=== PATIENT | male | born 1975 | race Caucasian/White ===

== ENCOUNTER 2023-08-20 20:10 | Inpatient (IN) | payer MEDICARE, SELFPAY ==
[2023-08-20] VITALS (8 sets, daily range): BP systolic 131–156; BP diastolic 64–92; BMI 21.4; BMI 21.1
--- NOTE | 2023-08-20 16:26 | ED.GENMED ---
History of Present Illness
<Rochelle Turner PA-C - Last Filed: 08/20/23 19:14>
General
Chief Complaint: Seizure
Source: patient
Exam Limitations: none
Time Seen by Provider: 08/20/23 16:17
Nursing documentation reviewed up to this point in time: agreed with
Travel History
Have you had any contact with someone who has COVID-19?: No
Do you have any symptoms of coronavirus? Fever > 100 degrees, chills, cough, shortness of breath, sore throat, loss of taste or smell, muscle aches, or headache?: No
History of Present Illness
History of Present Illness:
This is a 48-year-old male with a past medical history of alcohol abuse, anxiety, seizure disorder presenting emergency department today for a witnessed seizure while working. Patient is present in room with his girlfriend. Girlfriend reports that
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 Girlfriend reports that he had 2 seizures that each lasted 1 minute in length. Patient reports that he remembers going to work today and being at work but he is not
recall what happened before the seizure and does not recall any other details. Patient does not think he bit his tongue or had any urinary incontinence. Patient denies any headache but does note some feelings of being out of it and some mild
confusion. Patient does have a history of alcohol abuse, patient states that he started to drink a sixpack a day but currently, he only have a drink from time to time. Patient states his last drink was 1 week ago. Patient denies any history of
smoking or illicit substances.
Past History
<Rochelle Turner PA-C - Last Filed: 08/20/23 19:14>
Past History
ED Past Medical History: Seizures
ED Past Surgical History: None
Social History
Tobacco: Smoker
Alcohol: None
Personal: Other (Seperated)
Living: alone
Employment: Employed
Review of Systems
<Rochelle Turner PA-C - Last Filed: 08/20/23 19:14>
Review of Systems
All Other Systems: ROS reviewed and negative except as documented in HPI and ROS
Phy Exam
<Rochelle Turner PA-C - Last Filed: 08/20/23 19:14>
Physical Exam
Physical Exam:
General: Patient is well appearing and in no acute distress; non-toxic
Skin: Warm and dry, no rashes or lesions
Head: Normocephalic, atraumatic
Eyes: Sclera non-icteric. EOMs intact. PERRLA. No nystagmus.
Cardiac: Patient is tachycardic otherwise no murmurs, rubs, or gallops
Peripheral Vascular: No lower extremity edema
Pulm: Normal respiratory effort, no wheezes, rales, or rhonchi
Abdomen: No abdominal tenderness
Musculoskeletal: 5/5 strength in b/l upper and lower extremities.
Neuro: CN II-XII intact, no focal neurologic deficits. Resting tremor bilaterally with both arms extended. Finger to nose, heel to hernandez testing intact.
Psychiatric: Appropriate mood and affect.
Course
<Rochelle Turner PA-C - Last Filed: 08/20/23 19:14>
Orders/Labs/Results
Orders:
Orders
08/20/23 16:14
EKG [Electrocardiogram (*1)] Stat
Reason for Study: Tachycardia
EKG- Treatment ONCE
08/20/23 16:20
Alcohol Urgent
Complete Blood Count/With Diff Urgent
Comprehensive Metabolic Panel Urgent
08/20/23 16:51
Levetiracetam Injectable [Keppra] 1,000 mg IV NOW STA
08/20/23 16:52
CT Head W/o Iv Contrast Urgent
Comment:
Reason For Exam: seizure
08/20/23 17:16
Urinalysis Reflex To Culture Urgent
0.9% Sodium Chloride 1000 ml [Nss] 1,000 ml IV BOLUS
08/20/23 17:29
Blood Culture Q30M
TAYE Source: Blood/Venous
Specimen Description:
Blood Culture Q30M
TAYE Source: Blood/Venous
Specimen Description:
08/20/23 17:45
Add On- LAB Urgent
Tests Added?: ethanol
08/20/23 19:12
Nicotine [Nicoderm Transdermal] 21 mg TRANSDERM STAT STA
Abnormal Lab Results
08/20/23
16:20
WBC 37.8 H 10^3/uL
(4.8-10.8)
RBC 4.17 L 10^6/uL
(4.70-6.10)
MCV 101.0 H fL
(80.0-94.0)
MCH 33.1 H pg
(27.0-31.0)
MCHC 32.8 L g/dL
(33.0-37.0)
RDW 14.6 H %
(11.5-14.5)
Abs Immat Gran (auto) 2.4 H 10^3/uL
(0-0.05)
Absolute Neuts (auto) 28.1 H 10^3/uL
(1.4-6.5)
Absolute Lymphs (auto) 3.6 H 10^3/uL
(1.2-3.4)
Absolute Monos (auto) 2.4 H 10^3/uL
(0.1-0.6)
Absolute Basos (auto) 1.2 H 10^3/uL
(0-0.2)
Immature Gran % 6.3 H %
(0-0.5)
Lymphocytes % 9.6 L %
(20.5-51.1)
Basophils % 3.0 H %
(0-2)
Carbon Dioxide 11 L* mmol/L
(22-30)
Glucose 168 H mg/dl
(70-99)
Albumin 5.4 H g/dl
(3.5-5.0)
08/20/23 16:20
08/20/23 16:20
Vital Signs
Initial and Last Documented VS:
Initial Vital Signs
Temp Pulse Resp BP Pulse Ox
98.5 F 149 30 131/64 100
08/20/23 16:10 08/20/23 16:10 08/20/23 16:10 08/20/23 16:10 08/20/23 16:10
Last Documented Vital Signs
Temp Pulse Resp BP Pulse Ox
98.5 F 130 16 148/82 98
08/20/23 16:10 08/20/23 18:30 08/20/23 18:30 08/20/23 18:24 08/20/23 18:30
<Santiago Garcia MD - Last Filed: 08/20/23 17:46>
Orders/Labs/Results
Orders:
Orders
08/20/23 16:14
EKG [Electrocardiogram (*1)] Stat
Reason for Study: Tachycardia
EKG- Treatment ONCE
08/20/23 16:20
Alcohol Urgent
Complete Blood Count/With Diff Urgent
Comprehensive Metabolic Panel Urgent
08/20/23 16:51
Levetiracetam Injectable [Keppra] 1,000 mg IV NOW STA
08/20/23 16:52
CT Head W/o Iv Contrast Urgent
Comment:
Reason For Exam: seizure
08/20/23 17:16
Urinalysis Reflex To Culture Urgent
0.9% Sodium Chloride 1000 ml [Nss] 1,000 ml IV BOLUS
08/20/23 17:29
Blood Culture Q30M
TAYE Source: Blood/Venous
Specimen Description:
Blood Culture Q30M
TAYE Source: Blood/Venous
Specimen Description:
08/20/23 17:45
Add On- LAB Urgent
Tests Added?: ethanol
08/20/23 19:12
Nicotine [Nicoderm Transdermal] 21 mg TRANSDERM STAT STA
Abnormal Lab Results
08/20/23
16:20
WBC 37.8 H 10^3/uL
(4.8-10.8)
RBC 4.17 L 10^6/uL
(4.70-6.10)
MCV 101.0 H fL
(80.0-94.0)
MCH 33.1 H pg
(27.0-31.0)
MCHC 32.8 L g/dL
(33.0-37.0)
RDW 14.6 H %
(11.5-14.5)
Abs Immat Gran (auto) 2.4 H 10^3/uL
(0-0.05)
Absolute Neuts (auto) 28.1 H 10^3/uL
(1.4-6.5)
Absolute Lymphs (auto) 3.6 H 10^3/uL
(1.2-3.4)
Absolute Monos (auto) 2.4 H 10^3/uL
(0.1-0.6)
Absolute Basos (auto) 1.2 H 10^3/uL
(0-0.2)
Immature Gran % 6.3 H %
(0-0.5)
Lymphocytes % 9.6 L %
(20.5-51.1)
Basophils % 3.0 H %
(0-2)
Carbon Dioxide 11 L* mmol/L
(22-30)
Glucose 168 H mg/dl
(70-99)
Albumin 5.4 H g/dl
(3.5-5.0)
08/20/23 16:20
08/20/23 16:20
Vital Signs
Initial and Last Documented VS:
Initial Vital Signs
Temp Pulse Resp BP Pulse Ox
98.5 F 149 30 131/64 100
08/20/23 16:10 08/20/23 16:10 08/20/23 16:10 08/20/23 16:10 08/20/23 16:10
Last Documented Vital Signs
Temp Pulse Resp BP Pulse Ox
98.5 F 130 16 148/82 98
08/20/23 16:10 08/20/23 18:30 08/20/23 18:30 08/20/23 18:24 08/20/23 18:30
<Rochelle Turner PA-C - Last Filed: 08/20/23 19:14>
MDM/Problems Addressed
Differential Diagnosis Includes:
ddx include epileptic seizure, syncope, alcohol withdrawal seizure, hypnonatremia, meningitis
MDM/Problems Addressed:
Seizure
Chronic conditions affecting care:
Seizure disorder, alcohol abuse
Acute Exacerbation and/or Progression of Chronic Illness:
Seizure disorder, alcohol abuse
<Rochelle Turner PA-C - Last Filed: 08/20/23 19:14>
*Pulse Oximetry
Patient hypoxic: no
*Critical Care Note
Total Time (30-74mins, 75-104mins- exclusive of procedures): Not Applicable
<Rochelle Turner PA-C - Last Filed: 08/20/23 19:14>
Patient Management
Escalation/DeEscalation of care consider admission/obs:
This is a 48-year-old male with a past medical history of alcohol abuse, anxiety, seizure disorder presenting emergency department today for a witnessed seizure while working. Patient does have a known history of a seizure disorder and he is taking
Keppra but no longer takes this, does not follow with neurologist, has not had a seizure within a few years. On exam, he is nontoxic-appearing and has a nonfocal neurologic exam. His lab work reveals a significant leukocytosis of 37, as well as a
acidosis with a bicarb of 11. No signs or symptoms of infection at this time, will obtain blood cultures. Considering patient's abnormal labs and persistent tachycardia, will admit him for observation further workup
ED Attending Note
<Rochelle Turner PA-C - Last Filed: 08/20/23 19:14>
-
Portions of this chart may have been created with voice recognition software.� Occasional wrong word or��sound alike� substitutions may have occurred due to the inherent limitations of voice recognition software.
<Santiago Garcia MD - Last Filed: 08/20/23 17:46>
ED Attending Note
Patient seen and examined by attending physician: Yes
I performed the substantive portion of visit, reviewed & personally made and approve the management plan that is documented in note by myself or YULY.: Yes
ED Attending Note:
Patient apparently had 2 grand mal seizures at work these lasting about a minute. Postictal now but slowly waking up. Per his girlfriend he was fine this morning. Does have an alcohol history but stopped about a month ago with only occasional
drinking. Had a drink about 1 week ago. No withdrawal-like symptoms this morning going to work. Patient is improving postictally but still mildly confused. No recent infectious issues.
On exam patient is nontoxic. Relatively alert but slow to answer some questions. Nonfocal. No signs of trauma. No tongue biting. No incontinence. He is tachycardic.
Significant leukocytosis likely reactive with no infectious symptoms or preceding symptoms although admit this is a very high white count. He will be given his Keppra that he is supposed to be on for his baseline seizures. He will be admitted for
observation given the 2 seizures leukocytosis and persistent tachycardia.
Discharge Plan
Departure
Patient Disposition: Admit
Date of Disposition: 08/20/23
Time of Disposition: 18:47
Presentation/result/management discussed w/ accepting MD/DO: Hospitalist
Condition: Fair
Discharge Problem:
Seizure, Leukocytosis
Prescriptions:
No Action
Medical Marijuana
2 puff inhalation HS
Patient Comments:
08/20/2023, pt. smokes flower form and takes around 2 puffs HS for sleep/anxiety.
Interventions
Interventions:
*Risk Screen - Suicide Last Done: 08/20/23 16:10
*General Assessment Last Done: 08/20/23 16:10
*Neglect/Abuse Screening Last Done: 08/20/23 16:10
ED- Cardiac Assessment Last Done: 08/20/23 16:24
ED- Neurological Assessment Last Done: 08/20/23 16:24
ED- Pulmonary Assessment Last Done: 08/20/23 16:24
Discharge Date and Time
Print Language: GREEK
[2023-08-20 16:28] LABS: % Eosinophils 0.5 % (0-6); % Immature Granulocytes 6.3 % (0-0.5); % Lymphocytes 9.6 % (20.5-51.1); % Monocytes 6.3 % (1.7-9.3); % Neutrophils 74.3 % (42.2-75.2); Absolute Basophils 1.2 10^3/uL (0-0.2); Absolute Eosinophils 0.2 10^3/uL (0-0.7); Absolute Immature Granulocytes 2.4 10^3/uL (0-0.05); Absolute Lymphocytes 3.6 10^3/uL (1.2-3.4); Absolute Monocytes 2.4 10^3/uL (0.1-0.6); Absolute Neutrophils 28.1 10^3/uL (1.4-6.5); Hematocrit 42.1 % (39.0-52.0); Hemoglobin 13.8 g/dL (13.0-18.0); Mean Corp Hgb Conc. 32.8 g/dL (33.0-37.0); Mean Corpuscular Hgb 33.1 pg (27.0-31.0); Mean Platelet Volume 9.9 fL (7.4-10.4); Nucleated Red Blood Cells % 0.1 % (-); Platelet Count 299 10^3/uL (130-400); Red Blood Cell Count 4.17 10^6/uL (4.70-6.10); Red Cell Dist. Width 14.6 % (11.5-14.5); White Blood Cell Count 37.8 10^3/uL (4.8-10.8)
[2023-08-20 16:45] LABS: ALT (SGPT) 50 U/L (0-50); AST (SGOT) 49 U/L (17-59); Albumin 5.4 g/dl (3.5-5.0); Alkaline Phosphatase 76 U/L (38-126); Blood Urea Nitrogen 14 mg/dl (9-20); Calcium 10.2 mg/dl (8.4-10.2); Carbon Dioxide 11 mmol/L (22-30); Chloride 105 mmol/L (98-107); Estimated Creatinine Clearance 67 ml/min; Glucose 168 mg/dl (70-99); Total Bilirubin 0.6 mg/dl (0.2-1.3); Total Protein 8.2 g/dl (6.3-8.2); eGFR > 60.00
[2023-08-20 16:48] LABS: Sodium 136 mmol/L (135-145)
[2023-08-20] MEDS: KEPPRA 1000 MG IV (17:11)
[2023-08-20] MEDS: NSS 1000 IV (17:28)
[2023-08-20 18:56] LABS: Alcohol None Detected
--- NOTE | 2023-08-20 19:14 | HPS.HSE ---
Family Physician
-
Family Physician: INTERVIEWE UNKNOWN - PT NOT
Chief Complaint
-
2 tonic-clonic seizure episodes lasting 1 minute each.
History of Present Illness
This is a 48-year-old male with a past medical history significant for seizure disorder diagnosed with last seizure episode in 2020 who presents to the emergency department after suffering a seizure episode at around 3 PM this afternoon.
Patient reported that he has a prior diagnosis of epilepsy. The exact nature of this disorder is otherwise unclear but he has been prescribed Keppra. He stopped taking the Keppra about 6 months ago due to insurance issues. He reported that he
does have episodes and then but has not had a seizure episodes in the last 3 years.
He also has a history of alcohol abuse and used to be a daily drinker. He is currently somewhat reticent about providing his alcohol history stating that he does drink occasionally and that this episode could be secondary to withdrawal. He said
his last drink was about 2 days ago. He ultimately endorsed drinking about once a day including vodka and beer. He did not provide the exact quantity of alcohol intake. He reports that he is more stressed and had a seizure episodes as well
because with increase stress and anxiety in the past.
He denies any headaches, blurry vision, double vision, numbness tingling or weakness. He reported that he arose in usual state of health without any symptoms. There has been no febrile episodes cough or shortness of breath wheezing abdominal pain
nausea vomiting diarrhea urinary symptoms or flank pain.
He reports the use of medical marijuana. He denies any other recreational drug use. He denies any medications. He has not been any trauma.
This seizure episode was generalized tonic-clonic lasting 1 minute with 2 episodes [id number]. He has not had an episode since then. He is currently awake alert mostly back to his baseline.
In the ED vital signs shows a normal blood pressure of 150/80, he was tachycardic to 130 with oxygen saturation 90% on room air. ECG with sinus tach at 141 otherwise normal. CBC notable for leukocytosis to 37 otherwise normal. Chemistries notable
for a bicarb of 11 with an anion gap of 20. Glucose was 168. CT of the head was unremarkable. Infectious workup was initiated secondary to his anion gap and leukocytosis.
Medical History
Past Medical History
Past Medical History: Reports Seizures
Past Surgical History: Reports None
Social History
Tobacco: Smoker
Alcohol: Daily
Drug: Marijuana
Personal: Partner
Living: With Roomate
Employment: Employed
Family History
Family History: Not pertinent
Allergies / Home Medications
Allergies reflects when Allergies were last updated in [facility].
Home Medications with original date entered in [facility]
Allergy/Medication List:
Allergies
Allergy/AdvReac Type Severity Reaction Status Date / Time
No Known Allergies Allergy Unverified 08/20/23 19:16
Home Medications
Medical Marijuana 2 puff inhalation HS 08/20/23
Review of Systems
-
History Source: Patient
Constitutional: Reports No Symptoms
EENT: Reports No Symptoms
Respiratory: Reports No Symptoms
Cardiac: Reports No Symptoms
Abdomen/GI: Reports No Symptoms
: Reports No Symptoms
Musculoskeletal: Reports Muscle Pain
Skin: Reports No Symptoms
Neurological: Reports Weakness
Endocrine: Reports No Symptoms
Hematologic/Lymphatic: Reports No Symptoms
Psych: Reports No Symptoms
Physical Exam
Vital Signs
Vital Signs
Temp Pulse Resp BP Pulse Ox
98.5 F 130 16 148/82 98
08/20/23 16:10 08/20/23 18:30 08/20/23 18:30 08/20/23 18:24 08/20/23 18:30
Physical Exam
General: Well Developed, Well Nourished, No Apparent Distress, Comfortable and Conversant
HEENT: NormoCephalic, Anicteric, Moist mucous membranes, Atraumatic, PERRLA and Neck Nontender
Respiratory: Clear
Cardiac: S1/S2, Regular Rhythm and Tachycardia
Breast: Deferred by me
GI: Non Tender, Non Distended and Normal Bowel Sounds
Rectal: Deferred by Provider
Genito-urinary: Deferred by me
Musculoskeletal: No Clubbing, No Cyanosis and No Edema
Skin: Warm and Dry
Neuro: AO x 3, No Motor Deficits, Cranial Nerves Intact and No Sensory Deficits
Hematologic/Lymphatic: No Lymphadenopathy
Psych: Anxious
Laboratory Results
-
08/20/23 16:20
08/20/23 16:20
Laboratory Results
Total Bilirubin 0.6 mg/dl (0.2-1.3) 08/20/23 16:20
AST 49 U/L (17-59) 08/20/23 16:20
ALT 50 U/L (0-50) 08/20/23 16:20
Alkaline Phosphatase 76 U/L (38-126) 08/20/23 16:20
Data Reviewed
-
CT Scan: Report Reviewed by me
Medical Tests (Nuc Med, Echo, EKG etc): Image Personally Visualized and interpreted
Lab Data: Labs Reviewed by me
Old Records: Reviewed
Impression/Plan
-
IMPRESSION:
PLAN:
1. Recurrent seizure: Patient with h/o epilepsy diagnosed at age 23, last episode of seizure 3 years ago who stopped taking keppra (500mg bid) about 6 months ago and has had aura's but no seizures since until today. He is no longer post-ictal.
History is not entirely forthcoming regarding alcohol intake. Normal CT. Chemistries mostly notable for anion gap acidosis andCBC for leukocytosis.
- admit to telemetry
- s/p 1000mg keppra in ED. Continue 1g q12
- ativan prn seizure
- obtain drugs of abuse panel
- repeat labs in 6 hours, clearance of acidosis will indicate due to seizure rather than infection
- IV fluids
- consider MRI in am.
2. Anion gap acidosis - Suspect secondary to lactic acidosis. Cannot rule out alcoholism entirely. No h/o diabetes and glucose normal.
- check urinary ketones
- check etoh level, salicylate and tylenol levels
- d5 lactated ringers
3. ETOH use - moderate to low risk of withdrawal. Denies significant daily use but does endorse daily intake. Last intake about 24 - 48 hours ago. Denies prior withdrawal episodes. PASHA-Ar is currently 2.
- CICT protocol for now
- thiamine/folate
- iv fluids as above
4. Tobacco dependence - 1 ppd smoker.
- nicotine patch 21mg/24hrs
DVT PPX - lovenox sq
Full Code
[2023-08-20] MEDS: NICODERM TRANSDERMAL 21 MG TRANSDERM (19:32)
[2023-08-20 19:51] LABS: Salicylate < 1.0 mg/dl (2.0-20.0)
[2023-08-20] MEDS: D5LR 1000 IV (21:56)
--- NOTE | 2023-08-20 22:00 | PTCARENOTE ---
Received patient from ED accompanied by his girlfriend. Patient AAOx3, lungs clear, POX 99% on room air. Heart rate tachy in the low 100s, positive pulses, no edema. Patient admitted to the unit. VSS. Patient verbalized an understanding to ring for
all transfers. Call cannon in reach.
[2023-08-20] MEDS: THIAMINE INJECTION 200 MG IV (22:01)
[2023-08-20] MEDS: FLUSH (NSS) 1 FLUSH IV (22:02)
[2023-08-20 23:42] LABS: Urine Albumin Trace (Neg - Trace); Urine Bilirubin Negative (Negative); Urine Character Slightly Cloudy (Clear); Urine Color Yellow; Urine Glucose Negative (Negative); Urine Ketone 2+ (Negative); Urine Leukocyte 1+ (Negative); Urine Nitrite Positive (Negative); Urine Occult Blood 3+ (Negative); Urine Urobilinogen 1+ (Neg - 1+); Urine pH 6.5 (5.0-9.0)
[2023-08-21 00:03] LABS: Amphetamines Negative (Negative); Barbiturates Negative (Negative); Benzodiazepines Negative (Negative); Buprenorphine Negative (Negative); Cocaine Negative (Negative); Marijuana Negative (Negative); Methadone Negative (Negative); Methamphetamines Negative (Negative); Opiates Negative (Negative); Phencyclidine Negative (Negative); Tricyclic Antidepressants Negative (Negative)
[2023-08-21 00:51] LABS: Urine Red Blood Cell 16-20 /HPF (0-2)
[2023-08-21 00:52] LABS: Urine Bacteria Many (Negative); Urine Granular Cast 0-2 /LPF (0)
[2023-08-21 01:16] LABS: Hematocrit 34.5 % (39.0-52.0); Hemoglobin 12.1 g/dL (13.0-18.0); Mean Corp Hgb Conc. 35.1 g/dL (33.0-37.0); Mean Corpuscular Hgb 33.2 pg (27.0-31.0); Mean Corpuscular Volume 94.5 fL (80.0-94.0); Mean Platelet Volume 9.9 fL (7.4-10.4); Platelet Count 229 10^3/uL (130-400); Red Blood Cell Count 3.65 10^6/uL (4.70-6.10); Red Cell Dist. Width 14.6 % (11.5-14.5); White Blood Cell Count 31.9 10^3/uL (4.8-10.8)
[2023-08-21 01:24] LABS: Lactic Acid 0.9 mmol/L (0.7-2.0)
[2023-08-21 01:26] LABS: Blood Urea Nitrogen 14 mg/dl (9-20); Calcium 9.1 mg/dl (8.4-10.2); Carbon Dioxide 26 mmol/L (22-30); Chloride 105 mmol/L (98-107); Estimated Creatinine Clearance 91 ml/min; Glucose 106 mg/dl (70-99); Magnesium 2.3 mg/dl (1.6-2.3); Phosphorus 3.6 mg/dl (2.5-4.5); Potassium 3.8 mmol/L (3.5-5.1); Sodium 135 mmol/L (135-145); eGFR > 60.00
[2023-08-21 01:27] LABS: Alcohol None Detected
[2023-08-21 01:32] LABS: B-Hydroxybutyrate 0.23 mmol/L (0.02-0.27)
--- NOTE | 2023-08-21 02:29 | W.PN.UPDATE ---
Update Note
Progress Note Update
reviewed repeat labs with admitting doc, Dr Bernal.
BMP improved.
Toxicology neg
But UA with +nitrites, many wbc and +3 blood (pt did not mention any urinary complaints), but does have signicant leukocytosis. Will start empiric rocephin and wait for culture.
[2023-08-21] MEDS: ROCEPHIN 1000 MG IV (03:20)
[2023-08-21] MEDS: STERILE WATER FOR INJECTION 10 ML IV (03:20)
[2023-08-21] MEDS: FLUSH (NSS) 2 FLUSH IV (03:23)
[2023-08-21] MEDS: D5LR 1000 IV (05:23)
[2023-08-21 08:00] VITALS: BP 130/78
[2023-08-21] MEDS: THIAMINE INJECTION 200 MG IV (08:22)
[2023-08-21] MEDS: FOLVITE 1 MG PO (08:22)
[2023-08-21] MEDS: NICODERM TRANSDERMAL 21 MG TRANSDERM (08:22)
[2023-08-21] MEDS: KEPPRA 1000 MG IV (08:23)
--- NOTE | 2023-08-21 09:11 | CON.NEURO ---
Neuro Assessment/Plan
Assessment
IMPRESSIONS/RECOMMENDATIONS:
Abrupt recurrence of seizures most likely secondary to the patient's known right temporal lobe abnormality
Most likely the patient experienced new episode due to medical noncompliance and alcohol overexposure
Plan
Will report to [facility]
Patient encouraged to restart medications routinely and lifelong
Would provide Midazolam nasal spray to be used at start of aura
Patient encouraged to discontinue alcohol use
Will continue to follow as outpatient.
Consultation
Order
Date of Consultation: 08/21/23
Requesting Provider: Hospitalist
Reason for Consult: Seizure
Subjective/Objective
Subjective Data
Date of Service: August 21, 2023
Adapted from my esteemed colleague's note from 2020:
History of Present Illness
45-year-old male presents for evaluation for seizure disorder. He lost his license years ago due to DUIs. He was cleared to drive by a neurologist at [facility] but could not get in touch with her for documentation so has been sent to me for
clearance. It has been over one year since his last seizure. He also has a history of alcoholism and his last drink was over a year ago. He has a medical marijuana card for seizures and uses this regularly.
He had his first seizure at age 19. He was seizure free for 4 years and had his second event at age 23. He has had 'under 8 seizures total.' Date of his last seizure is unknown. It was over a year ago. He is a vague historian, saying 'this
should all be in my records' although we did not receive any. Triggers: lack of sleep, withdrawal of ETOH, caffeine
Seizure Type #1: aura 'feels like he's across the room, goes partially blind in his left eye, has a strange taste, can't tell if he's speaking coherently, feels like he could be shaking before he's sure he is, diaphoresis and then LOC' with
shaking in all 4 extremities. Duration ranges_ _unclear timing, maybe several minutes. Postictally he is usually not confused but does feel fatigued for seizure hours.
Seizure Type #2: (only his last seizure) while was working, 'felt like he had to sit down and then lay down, diaphoretic, couldn't sit still, couldn't catch his breath, lasted about 10 minutes.' No LOC, no tonic-clonic movement.
He takes Keppra 500mg BiD and gabapentin 300mg TID. Gabapentin is 'for anxiety.' He took Dilantin in the past but developed gingival hyperplasia. He denies that Keppra affects his depression and anxiety.
Last EEG and MRI brain was done at [facility] about 6 mos ago; we do not have records. He saw Dr. Ross. He states that he was told that he has ''something abnormal in his brain.'
INTERVAL HX: Since his last appointment, he has been doing well and has been seizure-free. His anxiety has improved significantly after he stopped drinking alcohol and he has subsequently been been taken off gabapentin. He denies any seizure
aura or episodes concerning for seizure. 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 EEG in 2017 showed occasional right temporal
polymorphic slowing with frequent right posterior temporal spikes activated by sleep. MRI brain in February 2017 showed 'findings of a developmental migrational anomaly with a moderate amount of heterotopic tuttle matter involving the right medial
temporal and right posterior temporal lobes and less prominent sub-ependymal tuttle matter heterotopia along the right greater than left lateral ventricles.
Assessments
1. Seizure - R56.9 (Primary)
2. Abnormal brain MRI - R90.89
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 He states that he has had 8 or less generalized tonic-clonic seizures in his lifetime. He previously took
Dilantin and has subsequently been well-controlled on Keppra. He also has a history of alcohol use and anxiety.
Treatment
1. Seizure
Start Keppra Tablet, 500 MG, 1 tablet, Orally, every 12 hrs, 90 days, 180 Tablet, Refills 3
Notes: -reviewed previous records from his epileptologist at [facility] including EEG/MRI brain results
-Continue Keppra 500 mg twice daily.
-Seizure precautions.
-Asked him to please call the office if he has any concern for possible breakthrough seizure activity or aura.
-reviewed when to call the office or 911 after/during a breakthrough seizure/symptoms concerning for status epilepticus.
Follow Up
1 Year
~~~~
Patient returned to this hospital's emergency department with recurrence of an aura in February 2022 at which time the patient had admitted discontinuing his levetiracetam.
He returned to this hospital's emergency department last evening due to a witnessed seizure. The patient was described as having 2 events each lasting approximately 1 minute associated with amnesia there was reportedly no tongue biting or urinary
incontinence.
Patient reports no insurance coverage for medicine until now. Aura is 3 minutes including dizziness.
Auras were taking place prior to this event every couple of months.
Objective Data
Vital Signs
Temp Pulse Resp BP Pulse Ox
36.8 C 81 16 130/78 100
08/21/23 08:00 08/21/23 08:00 08/21/23 08:00 08/21/23 08:00 08/21/23 08:00
Sodium 135 mmol/L (135-145) 08/21/23 00:59
Potassium 3.8 mmol/L (3.5-5.1) 08/21/23 00:59
BUN 14 mg/dl (9-20) 08/21/23 00:59
Glucose 106 mg/dl (70-99) H 08/21/23 00:59
Calcium 9.1 mg/dl (8.4-10.2) 08/21/23 00:59
Phosphorus 3.6 mg/dl (2.5-4.5) 08/21/23 00:59
Ur Buprenorphine Negative (Negative) 08/20/23 23:32
Patient Allergies
No Known Allergies Allergy (Unverified 08/20/23 19:16)
Review of Systems
-
History Source: Patient and Family
All other systems: Reviewed and negative
Cardiac: Negative Chest Pain
Abdomen/GI: Negative Incontinence of Stool
Genitourinary: Negative Incontinence
Musculoskeletal: Negative Back Pain or Neck Pain
Physical Exam
-
General: No Apparent Distress and Appears Stated Age
Eyes: OU Absent Papilledema, Round OU, [place] Conjunctivae and No Ptosis
HEENT: Anicteric and Moist Mucous Membranes
Neck: Full Range of Motion
Respiratory: No Dyspnea
Cardiac: No JVD
GI: Non-distended
Skin: Unremarkable
Extremities: No Clubbing, No Cyanosis and No Edema
Psych: Negative Intact Judgement/Insight
Extended Neurological Exam
Mood & Affect: Mood Unremarkable and Affect Unremarkable
Attention Span & Concentration: Awake, Alert, Interactive and Mild Difficulty with 2 Step Request
Memory: Unremarkable
Tremor: Hand Tremor Absent and Head Tremor Absent
Speech: Quality Unremarkable and Quantity Unremarkable
Cranial Nerve II: Left Eye: Pupillary Reactivity Unremarkable, Pupillary Size Unremarkable and Visual Delgado Grossly Intact
Cranial Nerve II: Right Eye: Pupillary Reactivity Unremarkable, Pupillary Size Unremarkable and Visual Delgado Grossly Intact
Cranial Nerves III, IV, : Extraocular Movement: Extraocular Movement Full in all Directions
Cranial Nerve VII: Facial Symmetry: Normal Facial Symmetry
Cranial Nerve VIII: Hearing: Unremarkable Hearing to Normal Conversational Volume
Cranial Nerve XI: Shoulder Shrug: Unremarkable
Muscle Strength, Overall: Full Throughout
Muscle Bulk & Tone: Bulk Unremarkable and Tone Unremarkable
Pronator Drift: No Drift in Upper Extremities
Deep Tendon Reflexes: Unremarkable Throughout
Touch Sensation: Unremarkable
Coordination: [id number] Testing Unremarkable
Babinski Sign: Absent Bilaterally
Data Reviewed
-
Labs: Report Reviewed
Reviewed with: Physician and Patient
Medications
-
Active Medications
Generic Name Dose Route Start Last Admin
Trade Name Freq PRN Reason Stop Dose Admin
Acetaminophen 650 mg 08/20/23 21:09
Acetaminophen 325 Mg Tablet PO 09/17/23 21:08
Q4HPRN PRN
mild pain/DEJESUS/temp> 100.4F
Bisacodyl 10 mg 08/20/23 21:09
Bisacodyl 10 Mg Rectal Suppository RECTAL 09/17/23 21:08
[id number] PRN
constipation
Ceftriaxone Sodium 1,000 mg 08/21/23 04:00 08/21/23 03:20
Ceftriaxone 1000 Mg / 10 Ml Vial IV 1,000 mg
HS DEBRA Administration
Enoxaparin Sodium 40 mg 08/21/23 18:00
Enoxaparin Sodium 40 Mg/0.4 Ml Syringe SC 09/18/23 17:59
QPM DEBRA
Folic Acid 1 mg 08/21/23 08:00 08/21/23 08:22
Folic Acid 1 Mg Tablet PO 09/18/23 07:59 1 mg
DAILY DEBRA Administration
Folic Acid 1 mg/ Sodium 50.2 mls @ 200.8 mls/hr 08/20/23 21:09
Chloride IV 09/17/23 21:08
DAILYPRN PRN
if NPO
Dextrose/Lactated Ringer's 1,000 mls @ 125 mls/hr 08/20/23 21:09 08/21/23 05:23
D5lr IV 1,000 mls
.Q8H DEBRA Administration
Levetiracetam 1,000 mg 08/21/23 08:00 08/21/23 08:23
Levetiracetam (100 Mg/Ml) 500 Mg/5 Ml Vial IV 09/18/23 07:59 1,000 mg
Q12 DEBRA Administration
Lorazepam 1 mg 08/20/23 21:09
Lorazepam 1 Mg Tablet PO 09/17/23 21:08
Q2HPRN PRN
MSAS 5-7
Lorazepam 1 mg 08/20/23 21:09
Lorazepam 2 Mg/Ml Vial IV 09/17/23 21:08
Q1HPRN PRN
MSAS 8-11
Lorazepam 2 mg 08/20/23 21:09
Lorazepam 2 Mg/Ml Vial IV 09/17/23 21:08
Q1HPRN PRN
MSAS > 11
Nicotine 21 mg 08/21/23 20:00
Nicotine 21 Mg Patch TRANSDERM 09/18/23 19:59
DAILY DEBRA
Ondansetron HCl 4 mg 08/20/23 21:09
Ondansetron 4 Mg/2 Ml Vial IV 09/17/23 21:08
Q6HPRN PRN
nausea and vomiting
Polyethylene Glycol 17 grams 08/20/23 21:09
Polyethylene Glycol Powder 17 Grams Packet PO 09/17/23 21:08
DAILYPRN PRN
constipation
Senna/Docusate Sodium 1 tablet 08/20/23 21:09
Docusate W/Senna (Angely-Colace) Tablet PO 09/17/23 21:08
BIDPRN PRN
constipation
Sodium Chloride 0 ml 08/20/23 21:09
Sodium Chloride 0.9% (Preservative Free) 10 Ml Vial IV 09/17/23 21:08
PRN PRN
To dilute IV Ativan
Protocol
Sodium Chloride 0 flush 08/20/23 22:00 08/21/23 03:23
Sodium Chloride 0.9% (Flush) Syringe IV 09/17/23 21:59 2 flush
PER PROTOCOL DEBRA Administration
Sterile Water 10 ml 08/21/23 04:00 08/21/23 03:20
Sterile Water For Injection 10 Ml Vial IV 09/18/23 03:59 10 ml
HS DEBRA Administration
Thiamine HCl 200 mg 08/20/23 21:09 08/21/23 08:22
Thiamine (100 Mg/Ml) 2 Ml Vial IV 08/23/23 08:01 200 mg
Q12 DEBRA Administration
Thiamine HCl 100 mg 08/23/23 20:00
Thiamine 100 Mg Tablet PO 09/20/23 19:59
BID DEBRA
Home Medications
�Medication �Instructions �Recorded
Medical Marijuana 2 puff inhalation HS 08/20/23
Past History
Past History
ED Past Medical History: Seizures
ED Past Surgical History: None
Social History
Tobacco: Smoker
Alcohol: None
Personal: Other ()
Living: alone
Employment: Employed
Family History
Family History: Other (Reviewed and noncontributory)
[2023-08-21 09:17] LABS: Hematocrit 37.3 % (39.0-52.0); Hemoglobin 12.8 g/dL (13.0-18.0); Mean Corp Hgb Conc. 34.3 g/dL (33.0-37.0); Mean Corpuscular Hgb 33.7 pg (27.0-31.0); Mean Corpuscular Volume 98.2 fL (80.0-94.0); Mean Platelet Volume 10.4 fL (7.4-10.4); Platelet Count 228 10^3/uL (130-400); Red Cell Dist. Width 14.7 % (11.5-14.5); White Blood Cell Count 27.7 10^3/uL (4.8-10.8)
[2023-08-21 09:48] LABS: Blood Urea Nitrogen 11 mg/dl (9-20); Calcium 9.5 mg/dl (8.4-10.2); Carbon Dioxide 25 mmol/L (22-30); Chloride 104 mmol/L (98-107); Estimated Creatinine Clearance 103 ml/min; Glucose 68 mg/dl (70-99); Potassium 3.6 mmol/L (3.5-5.1); Sodium 140 mmol/L (135-145); eGFR > 60.00
--- NOTE | 2023-08-21 12:06 | CM ---
Reviewed the chart notes and spoke with the patient and his significant other at the bedside. The patient resides with his significant other in a one story home with two steps to enter. The patient reports no DME/VN/SNF in the past. The patient
confirmed his pharmacy of choice is the [facility]. CM continues to be available to patient/family and is monitoring medical plan for needs at discharge.
Plan: Discharge to home when medically stable. No needs anticipated.
--- NOTE | 2023-08-21 12:50 | W.PN.HOSP.TC ---
Addendum entered and electronically signed by Bronson Cowan MD 08/21/23 14:25:
Correction: Discussed patient's case again via [facility] with Dr. Landeros, on-call neurology, he is not able to send patient's prescriptions via [facility] at this time, he requested that I send Levetiracetam ER 1000 mg daily 30 days supply with 2 refills,
as well as Nayzilam 5 mg/0.1 solution one spray at start of aura, 1 bottle. Will send these 2 prescriptions to patient's pharmacy.
Addendum entered and electronically signed by Bronson Cowan MD 08/21/23 13:53:
Discussed patient's case again via [facility] with Dr. Landeros, on-call neurology, he is not able to send patient's prescriptions via [facility] at this time, he requested that I send Levetiracetam ER 1000 mg daily 30 days supply with 2 refills, as well as
Nasilyam 5 mg/0.1 solution one spray at start of aura, 1 bottle. Will send these 2 prescriptions to patient's pharmacy.
Original Note:
Today's Communication/Plan
-
Discharge today
Assessment / Plan
Assessment / Plan
Physical Exam
General: Not in acute distress
HEENT: Normocephalic
Respiratory: Clear to Auscultation Bilaterally
Cardiac: S1/S2, Regular Rhythm and Regular Rate
GI: Non Tender, Non Distended and Normal Bowel Sounds
Musculoskeletal: No Cyanosis and No Edema
Skin: Warm and Dry
Neuro: AAO x 3, No Motor Deficits, Cranial Nerves Intact and No Sensory Deficits
Psych: Anxious
Assessment/Plan
#Presentation with Seizures
#Recurrent seizures
#Seizure Disorder
- s/p 1000mg keppra in ED.
- On discharge, neurology (via [facility]) recommended Levetiracetam ER 1000 mg daily -- Dr. Landeros mentioned via [facility] that he will send patient's Levetiracetam ER 1000 mg daily from [facility]
- Neurology mentioned okay to discharge patient home today
#Anion gap acidosis - RESOLVED
#Alcohol Use
- Last alcohol drink was 3 days ago, he reported he only drinks once a week
- thiamine/folate
- Patient and his girlfriend both insisted on patient being discharged today
- Case discussed (today, via [facility]) with neurology, especially regarding discharge, and neurology recommended okay to discharge to home, today
#Tobacco dependence - 1 ppd smoker.
- nicotine patch 21mg/24hrs
DVT PPX - lovenox sq
Full Code
More than 30 minutes spent in discharge including
Final examination of the patient
Summarizing hospital stay
Instructions for continuing care to all relevant caregivers
Preparation of discharge records, prescriptions, and referral forms
Total time spent (in minutes): 35
Anticipated Discharge: Today
Subjective/Interval History
-
Date of Service: August 21, 2023
Patient was seen and examined. He reported feeling fine, he denied any bothersome symptoms, his girlfriend was present in the room, and both he and his girlfriend strongly insisted that he be discharged today.
Objective Data
-
Labs:
Laboratory Results
08/21/23 08/21/23
00:59 07:17
WBC 31.9 H 27.7 H
Hgb 12.1 L 12.8 L
Hct 34.5 L 37.3 L
Plt Count 229 D 228
Sodium 135 140
Potassium 3.8 3.6
Chloride 105 104
Carbon Dioxide 26 25
BUN 14 11
Creatinine 0.9 0.8
Glucose 106 H 68 L
Calcium 9.1 9.5
Vital Signs:
Vital Signs
Temp Pulse Resp BP Pulse Ox
98.2 F 81 16 130/78 100
08/21/23 08:00 08/21/23 08:00 08/21/23 08:00 08/21/23 08:00 08/21/23 08:00
I&O
08/20/23 08/21/23 08/22/23
06:59 06:59 06:59
Intake Total 1630 / 1630
Output Total 1300 / 1300 400 / 400
Balance 330 / 330 -400 / -400
[2023-08-21] MEDS: D5LR IV (13:04)
--- NOTE | 2023-08-21 14:37 | W.DS.TRANS ---
DC Summary - Insurance Clerk
-
Discharge Instructions:
Discharge Diagnosis/Procedures #Presentation with Seizures
#Recurrent seizures
#Seizure Disorder
#Anion gap acidosis - RESOLVED
#Alcohol Use
#Tobacco dependence
Diet As tolerated
Activity Other activity
Additional Activity Do not perform any activity that would put you
or others at risk of harm in the event that you
became weak or lost consciousness while doing
that activity.
Driving Restrictions No driving
Instructions: Alcohol use - when is drinking a problem?
Alcohol withdrawal
Seizures
Levetiracetam
Midazolam
Stand-Alone Forms:
Changes to Home Medications: Yes
Discharge Medications:
DC Medications w/original date entered in [employer]
Medical Marijuana 2 puff inhalation HS 08/20/23
folic acid 1 mg tablet 1 mg PO DAILY #30 tabs 08/21/23
levetiracetam 1,000 mg tablet 1,000 mg PO DAILY #30 tabs 08/21/23
midazolam 5 mg/spray (0.1 mL) nasal spray (Nayzilam) 1 spray intranasal ONCE PRN at the start of aura #2 ea 08/21/23
nicotine 21 mg/24 hr daily transdermal patch 21 mg transdermal DAILY #28 ea 08/21/23
thiamine HCl (vitamin B1) 100 mg tablet 100 mg PO BID #60 tabs 08/21/23
Home Medication Changes
Levetiracetam, Nayzilam spray, Nicotine patch, Folic Acid, and Thiamine are new medications
Pending Results: Yes
Additional Pending Results:
Final results of blood and urine cultures from hospitalization
Total time spent discharging patient (in min): 35
--- NOTE | 2023-08-22 13:36 | W.PN.UPDATE ---
Update Note
Progress Note Update
I called the patient just now to discuss his Complete Blood Count results. I advised him that he needs to see a primary care physician within less than a week, in order to repeat his Complete Blood Count with Differential (including peripheral
smear) and Comprehensive Metabolic Panel. Patient reported feeling fine at this time, with no signs or symptoms of infection or illness i.e. he has no fever, no dysuria, no suprapubic pain, no cough, no malaise, no chest pain. I advised patient that
he may need to see a [employer] school principal for further work-up of his Complete Blood Count with Differential results, and to rule out a hematologic malignancy. Patient understood and acknowledge all of the above instructions I provided to him.
--- NOTE | 2023-08-24 12:11 | W.DCSUMMARY ---
Discharge Summary
Discharge Data
Date of Admission: 08/20/23
Date of Discharge: 08/24/23
Total time spent discharging patient (in min): 35
-
Pending Results: Yes
Additional Pending Results:
Final results of blood and urine cultures from hospitalization
Hospital Course
48-year-old male with a past medical history significant for seizure disorder, epilepsy, and alcohol abuse (last drink about 2-3 days prior to presentation), who presented to the emergency department after suffering a seizure episode at around 3 PM
on the day of presentation. Patient received Keppra in the emergency department and neurology was consulted. There was a concern for infection given patient's acidosis as well as leukocytosis, but patient had no signs or symptoms of infection.
Patient's acidosis resolved the next day and leukocytosis improved. Patient's case was discussed with neurologist Dr. Landeros who mentioned patient was okay for discharge to home - Dr. Landeros advised that patient on discharge be prescribed
Levetiracetam ER 1000 mg daily 30 days supply with 2 refills, as well as Nasilyam 5 mg/0.1 solution one spray at start of seizure aura, 1 bottle. Patient was advised to closely follow-up his routine blood work, especially his complete blood count
labwork with a primary care physician (should follow-up with a primary care physician in 1 week) and if needed, a parking lot signaler to further evaluate his complete blood count. Patient and his girlfriend very strongly insisted that he (the patient) be
discharged on August 21, 2023.
Discharge Plan
-
Patient Disposition: Home (Routine Discharge)
Discharge Diagnosis/Procedures: #Presentation with Seizures
#Recurrent seizures
#Seizure Disorder
#Anion gap acidosis - RESOLVED
#Alcohol Use
#Tobacco dependence
Condition: Fair
Diet: As tolerated
Activity: Other activity
Additional Activity: Do not perform any activity that would put you or others at risk of harm in the event that you became weak or lost consciousness while doing that activity.
Driving Restrictions: No driving
Instructions: Alcohol use - when is drinking a problem?, Alcohol withdrawal, Seizures, Levetiracetam, Midazolam
Referrals:
Vernon Landeros MD [Active] - in less than 1 week (Hospital Seizure Follow-up)
NONE,* [Family Provider] -
Additional Discharge Medication Instructions: Levetiracetam, Nayzilam spray, Nicotine patch, Folic Acid, and Thiamine are new medications
Prescriptions:
New
folic acid 1 mg Tablet
1 mg PO DAILY Qty: 30 0RF
nicotine 21 mg/24 hr Patch 24 Hour
21 mg transdermal DAILY Qty: 28 0RF
thiamine HCl (vitamin B1) 100 mg Tablet
100 mg PO BID Qty: 60 0RF
Nayzilam 5 mg/spray (0.1 mL) spray,non-aerosol
1 spray intranasal ONCE PRN (Reason: at the start of aura) Qty: 2 0RF
Rx Instructions:
Nayzilam 5 mg/0.1 solution - one spray at start of aura, 1 bottle
levetiracetam 1,000 mg tablet extended release 24 hr
1,000 mg PO DAILY Qty: 30 2RF
Continued
Medical Marijuana
2 puff inhalation HS
Patient Comments:
08/20/2023, pt. smokes flower form and takes around 2 puffs HS for sleep/anxiety.
Discharge Orders:
Discharge Patient (As Directed); Ordered 08/21/23
Ordered By: Bronson Cowan
Discharge Date and Time
Discharge Date/Time: 08/21/23 15:27
Print Language: SETSWANA
== END 2023-08-21 15:27 | disposition home or self-care (01) | DRG 101 ==
LOC: 2 NORTH 20:10
PROVIDERS: Physician Assistant; ADMITTING PHYSICIAN Internal Medicine; ATTENDING PHYSICIAN Hospitalist; CONSULT PHYSICIAN Psychiatry & Neurology Neurology; EMERGENCY PHYSICIAN Emergency Medicine
DX: G40.409 Other generalized epilepsy and epileptic syndromes, not intractable, without status epilepticus (principal); E87.20 Acidosis, unspecified; F17.210 Nicotine dependence, cigarettes, uncomplicated; G40.109 Localization-related (focal) (partial) symptomatic epilepsy and epileptic syndromes with simple partial seizures, not intractable, without status epilepticus; Z91.199 Patient's noncompliance with other medical treatment and regimen due to unspecified reason; F10.90 Alcohol use, unspecified, uncomplicated; F41.9 Anxiety disorder, unspecified
CPT/HCPCS: 70450; 80048; 80053; 80179; 80306; 81003; 81015; 82010; 82077; 83605; 83735; 84100; 85025; 85027; 87040; 87086; 87149; 87205; 93005; 96361; 96374; 99285